=== PATIENT | male | born 2000 | race Caucasian/White ===

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

== ENCOUNTER 2019-06-10 16:31 | Emergency (ER) | payer OTHER ==
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
[2019-06-10 18:06] VITALS: BP 113/86; PULSE 112
== END 2019-06-10 17:15 | disposition home or self-care (01) ==
LOC: VM.ED 16:31
DX: Z04.1 Encounter for examination and observation following transport accident (principal); Z88.1 Allergy status to other antibiotic agents; Y99.0 Civilian activity done for income or pay
CPT/HCPCS: 99282